=== PATIENT | male | born 1935 | race Caucasian/White ===

== ENCOUNTER → 2017-03-16 | Outpatient (CLI) | payer MEDICARE | END | disposition home or self-care (01) | LOC: LAB 15:06 | PROVIDERS: ATTEND Internal Medicine | DX: I49.9 Cardiac arrhythmia, unspecified (principal) | CPT/HCPCS: 93005 ==

== ENCOUNTER → 2017-06-17 | Outpatient (CLI) | payer MEDICARE | END | disposition home or self-care (01) | LOC: RAD 14:47 | PROVIDERS: ATTEND Internal Medicine | DX: I82.412 Acute embolism and thrombosis of left femoral vein (principal); I82.432 Acute embolism and thrombosis of left popliteal vein; I82.492 Acute embolism and thrombosis of other specified deep vein of left lower extremity; E11.9 Type 2 diabetes mellitus without complications ==

== ENCOUNTER 2017-08-27 14:56 | Emergency (ER) | payer MEDICARE ==
[~2017-08-27] VITALS: Ht 175.3 cm; Wt 128.2 kg
[2017-08-27 14:58] VITALS: BP 154/83
== END 2017-08-27 17:04 | disposition home or self-care (01) ==
LOC: ED 16:25
DX: I82.532 Chronic embolism and thrombosis of left popliteal vein (principal); Z79.01 Long term (current) use of anticoagulants; I82.512 Chronic embolism and thrombosis of left femoral vein; E11.9 Type 2 diabetes mellitus without complications; M19.90 Unspecified osteoarthritis, unspecified site; Z86.718 Personal history of other venous thrombosis and embolism
CPT/HCPCS: 99284

== ENCOUNTER 2020-01-04 09:00 | Inpatient (IN) | payer MEDICARE ==
[~2020-01-04] VITALS: Ht 172.7 cm; Wt 111.1 kg
[~2020-01-04 09:00] MED LIST: ALLO100T30 PO; CEFD300C37 PO; FURO20TA3 PO; GLIM1TAB7 PO; MECL-101 PO; METF500T17 PO; METO25TA35 PO; RIVA20TA PO; TAMS-11 PO
--- NOTE | 2020-01-04 09:29 | NUR ---
Patient into room, changed into gown. Patient reports that he was told by his primary that he had laboratory results of concern for low blood counts. patient reports no signs or symptoms. Midlevel provider to bedside, assessment complete. Awaiting orders.
--- NOTE | 2020-01-04 09:34 | NUR ---
RN to bedside, registration at bedside completing questions. RN provided patient with warm blanket. Registration completed their tasks, molding technician now at bedside completing imaging. Awaiting phlebotomy and radiology read of imaging.
[2020-01-04 10:12] LABS: ALANINE AMINOTRANSFERASE 24 U/L (12-78); ALBUMIN 2.4 g/dL (3.4-5.0); ANION GAP 6 mmol/L (5-15); CALCIUM 7.1 mg/dL (8.5-10.1); CHLORIDE 108 mmol/L (98-107); CREATININE 0.85 mg/dL (0.7-1.3)
[2020-01-04 10:14] LABS: ALKALINE PHOSPHATASE 57 U/L (45-117); BILIRUBIN,TOTAL 0.7 mg/dL (0.2-1.0); TOTAL PROTEIN 6.2 g/dL (6.4-8.2)
[2020-01-04 10:43] LABS: MEAN CORPUSCULAR HEMOGLOBIN 31.3 pg (27.5-34.5); MEAN CORPUSCULAR HGB CONC 32.9 g/dL (33.2-36.2); MEAN CORPUSCULAR VOLUME 95.4 fL (81-97); PLATELET COUNT 41 x10^3/uL (130-400); RED BLOOD COUNT 3.74 x10^6/uL (4.38-5.82); RED CELL DISTRIBUTION WIDTH 15.4 % (9.4-14.8)
[2020-01-04 10:45] LABS: MD YES
[2020-01-04 10:52] LABS: BAND#(MANUAL) 0.11 x10^3/uL; BANDS%(MANUAL) 8 % (0-7); EOS#(MANUAL) 0.04 x10^3/uL (0.0-0.4); EOS% (MANUAL) 3 % (1-7); LYMPH#(MANUAL) 0.39 x10^3/uL (1-3.4); LYMPHS% (MANUAL) 28 % (22-44); MONOS#(MANUAL) 0.15 x10^3/uL (0.3-2.7); MONOS% (MANUAL) 11 % (2-9); REACTIVE LYMPHS # (MANUAL) 0.03 x10^3/uL (0-0); REACTIVE LYMPHS % (MANUAL) 2 % (0-0); SEG#(MANUAL) 0.67 x10^3/uL (1.8-6.8); SEGS% (MANUAL) 48 % (42-75)
--- NOTE | 2020-01-04 10:59 | NUR ---
Received call from laboratory regarding critical lab values, updated provider, orders placed for follow up manual differential and coagulation values. Awaiting results.
[2020-01-04 11:06] LABS: ANISOCYTOSIS 1+
[2020-01-04 11:07] LABS: HYPOCHROMIA 1+
[2020-01-04 11:08] LABS: <PLATELET ESTIMATE> DECREASED; LARGE PLATELETS 1+
[2020-01-04 11:20] LABS: PROTHROMBIN TIME 18.5 Seconds (9.6-11.5)
[2020-01-04 11:21] LABS: INTERNATIONAL NORMALIZED RATIO 1.74 (0.93-1.1)
--- NOTE | 2020-01-04 11:36 | NUR ---
RN to bedside, reiterated need for urinalysis. Patient agreeable. RN reviewed clean catch urine instructions and patient verbalized understanding. Patient returned with sample, RN carried sample to lab. RN then provided patient with another warm blanket, patient not reattached to monitor as vital signs have been stable and patient reports considerable increase in comfort while sitting in chair as opposed to gurney.
[2020-01-04 11:41] LABS: MICROSCOPIC AUTO
[2020-01-04 11:43] LABS: CULTURE INDICATED? NO
--- NOTE | 2020-01-04 12:37 | NUR ---
RN to bedside, provided additional incontinence breif. Noted order placed for admission. RN returned, initiated peripheral intravenous access per protocol. Provider to bedside while RN initiated access, informed of need for admission. RN then reviewed process for admission. Patient verbalized understanding. Awaiting admission bed.
[2020-01-04] MEDS ORDERED: hydrALAzine 20 MG/ML, 1ML IVPush PRN (13:00)
[2020-01-04] MEDS ORDERED: ONDANSETRON 2MG/ML, 2ML IVPush PRN (13:00)
[2020-01-04] MEDS ORDERED: ACETAMINOPHEN 325 MG TABLET PO PRN (13:00)
[2020-01-04 13:19] LABS: HCT (SEDRATE) 36.4 % (39.2-51.8)
[2020-01-04] MEDS ORDERED: POTASSIUM CHLORIDE 20 MEQ TAB.ER.PRT PO ONE ×2 (13:31→16:00)
[2020-01-04 13:34] VITALS: BP 135/84
[2020-01-04 13:54] LABS: FREE T4 (FREE THYROXINE) 1.28 ng/dL (0.76-1.46)
[2020-01-04 14:09] LABS: D-DIMER (DIC) 30.71 ug/mlFEU (0.00-0.52); PROTIME 18.5 Seconds (9.6-11.5)
[2020-01-04] MEDS ORDERED: FENTANYL PF 100 MCG/2ML ONE ×2 (14:49)
[2020-01-04] MEDS ORDERED: MIDAZOLAM 1 MG/ML, 5ML ONE (14:49)
[2020-01-04] MEDS ORDERED: FLUMAZENIL 0.1 MG/1 ML, 5ML ONE (14:50)
[2020-01-04] MEDS ORDERED: NALOXONE 1 MG/ML, 2ML ONE (14:50)
[2020-01-04 18:49] VITALS: BP 131/82
[2020-01-04] MEDS: metFORMIN 500 MG TABLET PO SCH (20:51)
[2020-01-04] MEDS: METOPROLOL TARTRATE 25 MG TAB PO SCH (20:51)
[2020-01-05 01:41] VITALS: BP 113/74
[2020-01-05 04:42] LABS: MEAN CORPUSCULAR HEMOGLOBIN 31.6 pg (27.5-34.5); MEAN CORPUSCULAR HGB CONC 33.2 g/dL (33.2-36.2); MEAN CORPUSCULAR VOLUME 95.4 fL (81-97); RED CELL DISTRIBUTION WIDTH 15.1 % (9.4-14.8)
[2020-01-05 04:45] LABS: INTERNATIONAL NORMALIZED RATIO 1.44 (0.93-1.1); PROTHROMBIN TIME 15.3 Seconds (9.6-11.5)
[2020-01-05 04:50] LABS: ALANINE AMINOTRANSFERASE 23 U/L (12-78); ALBUMIN 2.2 g/dL (3.4-5.0); ANION GAP 5 mmol/L (5-15); CALCIUM 7.1 mg/dL (8.5-10.1); CHLORIDE 108 mmol/L (98-107)
[2020-01-05 05:01] LABS: ALKALINE PHOSPHATASE 63 U/L (45-117); BILIRUBIN,TOTAL 0.6 mg/dL (0.2-1.0); CREATININE 0.84 mg/dL (0.7-1.3); TOTAL PROTEIN 5.9 g/dL (6.4-8.2)
[2020-01-05 05:33] LABS: MD YES
[2020-01-05 05:35] LABS: MEAN PLATELET VOLUME 9.9 fL (7.4-10.4)
[2020-01-05 05:36] LABS: PLATELET COUNT 30 x10^3/uL (130-400)
[2020-01-05 05:50] LABS: ANISOCYTOSIS 1+; EOS#(MANUAL) 0.06 x10^3/uL (0.0-0.4); EOS% (MANUAL) 4 % (1-7); LYMPH#(MANUAL) 0.69 x10^3/uL (1-3.4); LYMPHS% (MANUAL) 43 % (22-44); MONOS% (MANUAL) 6 % (2-9); SEG#(MANUAL) 0.75 x10^3/uL (1.8-6.8); SEGS% (MANUAL) 47 % (42-75)
[2020-01-05 05:51] LABS: <PLATELET ESTIMATE> DECREASED; HYPOCHROMIA 1+
[2020-01-05 05:52] LABS: <PLT MORPHOLOGY> NORMAL PLT MORPH; OVALOCYTES 1+
[2020-01-05 06:34] VITALS: BP 110/68
[2020-01-05] MEDS: ALLOPURINOL 300 MG TABLET PO SCH (08:37)
[2020-01-05] MEDS: metFORMIN 500 MG TABLET PO SCH ×2 (08:37→19:57)
[2020-01-05] MEDS: SENNA/DOCUSATE TABLET PO SCH (08:38)
[2020-01-05] MEDS: CYANOCOBALAMIN 1,000 MCG TABLET PO SCH (08:38)
[2020-01-05] MEDS: TAMSULOSIN 0.4 MG CAP.ER.24H PO SCH (08:38)
[2020-01-05 14:05] VITALS: BP 110/68
[2020-01-05 18:23] VITALS: BP 123/79
[2020-01-05] MEDS: METOPROLOL TARTRATE 25 MG TAB PO SCH (19:58)
[2020-01-06 01:05] VITALS: BP 111/73
[2020-01-06 06:13] LABS: MEAN CORPUSCULAR HEMOGLOBIN 31.2 pg (27.5-34.5); MEAN CORPUSCULAR HGB CONC 32.6 g/dL (33.2-36.2); MEAN CORPUSCULAR VOLUME 95.9 fL (81-97); MEAN PLATELET VOLUME 9.5 fL (7.4-10.4); RED BLOOD COUNT 3.69 x10^6/uL (4.38-5.82); RED CELL DISTRIBUTION WIDTH 15.8 % (9.4-14.8)
[2020-01-06 06:19] LABS: PLATELET COUNT 26 x10^3/uL (130-400)
[2020-01-06 06:33] VITALS: BP 115/76
[2020-01-06 06:46] LABS: MD YES
[2020-01-06 06:54] LABS: MONOS#(MANUAL) 0.17 x10^3/uL (0.3-2.7); MONOS% (MANUAL) 12 % (2-9); REACTIVE LYMPHS # (MANUAL) 0.03 x10^3/uL (0-0); REACTIVE LYMPHS % (MANUAL) 2 % (0-0)
[2020-01-06 06:57] LABS: <PLATELET ESTIMATE> DECREASED; <PLT MORPHOLOGY> NORMAL PLT MORPH; ANISOCYTOSIS 1+; HYPOCHROMIA 1+
[2020-01-06] MEDS: ALLOPURINOL 300 MG TABLET PO SCH (08:07)
[2020-01-06] MEDS: TAMSULOSIN 0.4 MG CAP.ER.24H PO SCH (08:07)
[2020-01-06] MEDS: SENNA/DOCUSATE TABLET PO SCH (08:08)
[2020-01-06] MEDS: CYANOCOBALAMIN 1,000 MCG TABLET PO SCH (08:08)
[2020-01-06] MEDS: metFORMIN 500 MG TABLET PO SCH ×2 (08:08→20:06)
[2020-01-06 08:30] LABS: BAND#(MANUAL) 0.06 x10^3/uL; BANDS%(MANUAL) 4 % (0-7); LYMPH#(MANUAL) 0.63 x10^3/uL (1-3.4); LYMPHS% (MANUAL) 45 % (22-44)
[2020-01-06 08:31] LABS: EOS#(MANUAL) 0.08 x10^3/uL (0.0-0.4); EOS% (MANUAL) 6 % (1-7)
[2020-01-06 08:32] LABS: SEG#(MANUAL) 0.43 x10^3/uL (1.8-6.8); SEGS% (MANUAL) 31 % (42-75)
[2020-01-06 13:53] VITALS: BP 118/76
[2020-01-06 19:03] VITALS: BP 127/77
[2020-01-06] MEDS: METOPROLOL TARTRATE 25 MG TAB PO SCH (20:06)
[2020-01-07 00:20] VITALS: BP 139/83
[2020-01-07 04:58] LABS: MEAN CORPUSCULAR HEMOGLOBIN 31.1 pg (27.5-34.5); MEAN CORPUSCULAR HGB CONC 32.2 g/dL (33.2-36.2); MEAN CORPUSCULAR VOLUME 96.4 fL (81-97); MEAN PLATELET VOLUME 9.4 fL (7.4-10.4); RED CELL DISTRIBUTION WIDTH 15.4 % (9.4-14.8)
[2020-01-07 05:16] LABS: PLATELET COUNT 27 x10^3/uL (130-400)
[2020-01-07 06:09] LABS: MD YES
[2020-01-07 06:13] LABS: EOS#(MANUAL) 0.03 x10^3/uL (0.0-0.4); EOS% (MANUAL) 2 % (1-7); LYMPHS% (MANUAL) 45 % (22-44); MONOS#(MANUAL) 0.13 x10^3/uL (0.3-2.7); MONOS% (MANUAL) 9 % (2-9); REACTIVE LYMPHS # (MANUAL) 0.01 x10^3/uL (0-0); REACTIVE LYMPHS % (MANUAL) 1 % (0-0); SEGS% (MANUAL) 43 % (42-75)
[2020-01-07 06:14] LABS: ANISOCYTOSIS 1+; LYMPH#(MANUAL) 0.63 x10^3/uL (1-3.4)
[2020-01-07 06:15] LABS: <PLATELET ESTIMATE> DECREASED; <PLT MORPHOLOGY> NORMAL PLT MORPH; POLYCHROMASIA 1+
[2020-01-07 08:12] VITALS: BP 123/83
[2020-01-07] MEDS ORDERED: LIDODERM 5% PATCH TD ONE (08:30)
[2020-01-07] MEDS: CYANOCOBALAMIN 1,000 MCG TABLET PO SCH (09:00)
[2020-01-07] MEDS: SENNA/DOCUSATE TABLET PO SCH (09:00)
[2020-01-07] MEDS: TAMSULOSIN 0.4 MG CAP.ER.24H PO SCH (09:07)
[2020-01-07] MEDS: ALLOPURINOL 300 MG TABLET PO SCH (09:07)
[2020-01-07] MEDS: metFORMIN 500 MG TABLET PO SCH (09:07)
[2020-01-07] MEDS ORDERED: LIDODERM REMOVE PATCH NOTE XX ONE (20:30)
== END 2020-01-07 10:00 | disposition home or self-care (01) | DRG 811 ==
LOC: ED 09:28 → EDIP 12:20 → 3N 13:28
PROVIDERS: ADMIT Hospitalist; ATTEND Hospitalist
PROC: 07DR3ZX Extraction of Iliac Bone Marrow, Percutaneous Approach, Diagnostic (ICD-10-PCS; principal; 2020-01-04)
DX: D46.A Refractory cytopenia with multilineage dysplasia (principal); D65 Disseminated intravascular coagulation [defibrination syndrome]; C85.90 Non-Hodgkin lymphoma, unspecified, unspecified site; D61.818 Other pancytopenia; E87.6 Hypokalemia; E11.9 Type 2 diabetes mellitus without complications; E04.2 Nontoxic multinodular goiter; I10 Essential (primary) hypertension; Z66 Do not resuscitate; J43.9 Emphysema, unspecified; M10.9 Gout, unspecified; N20.0 Calculus of kidney; N40.0 Benign prostatic hyperplasia without lower urinary tract symptoms; Z80.3 Family history of malignant neoplasm of breast; Z82.49 Family history of ischemic heart disease and other diseases of the circulatory system; Z86.718 Personal history of other venous thrombosis and embolism; Z87.442 Personal history of urinary calculi; Z87.891 Personal history of nicotine dependence; R91.1 Solitary pulmonary nodule
CPT/HCPCS: 36415; 38222; 71045; 71250; 74176; 77012; 80053; 80074; 81001; 82607; 82962; 83615; 83735; 84100; 84439; 84443; 84550; 85025; 85049; 85060; 85097; 85379; 85384; 85610; 85651; 85730; 86644; 86645; 86664; 86665; 87806; 88184; 88185; 88237; 88264; 88280; 88305; 88311; 88313; 88374; 88377; 93005; 99285; G0378; J2250; J3010; G0475; J2310